=== PATIENT | male | born 1945 | race Caucasian/White ===

== ENCOUNTER → 2019-12-09 | Outpatient (CLI) | payer MEDICARE, BC ==
[~2019-12-09] MED LIST: BENA40TA3 PO; HYDR25TA6 PO; ROSU5TAB PO; VILA40TA PO; testosterone
[2019-12-09 10:44] LABS: ALANINE AMINOTRANSFERASE 33 U/L (12-78); ALBUMIN 3.9 g/dL (3.4-5.0); ANION GAP 4 mmol/L (5-15); CALCIUM 8.9 mg/dL (8.5-10.1); CHLORIDE 105 mmol/L (98-107); CREATININE 1.61 mg/dL (0.7-1.3)
[2019-12-09 10:47] LABS: ALKALINE PHOSPHATASE 73 U/L (45-117); BILIRUBIN,TOTAL 0.8 mg/dL (0.2-1.0); TOTAL PROTEIN 8.2 g/dL (6.4-8.2)
== END | disposition home or self-care (01) ==
LOC: STAR 09:22
PROVIDERS: ATTEND Otolaryngology
DX: Z01.818 Encounter for other preprocedural examination (principal); J01.01 Acute recurrent maxillary sinusitis; K04.5 Chronic apical periodontitis; I45.19 Other right bundle-branch block
CPT/HCPCS: 36415; 80053; 93005

== ENCOUNTER 2019-12-14 05:18 | Day surgery (SDC) | payer MEDICARE, BC ==
[~2019-12-14] VITALS: Ht 188 cm; Wt 118.3 kg
[~2019-12-14 05:18] MED LIST changes: -testosterone; +testosterone IM
[2019-12-14] MEDS ORDERED: LACTATED RINGERS 1,000 ML IV SCH (05:45)
[2019-12-14 05:49] VITALS: BP 112/73
[2019-12-14] MEDS ORDERED: CHLORHEXIDINE 15 ML UDC MM ONE (06:00)
[2019-12-14] MEDS ORDERED: LIDOCAINE 1%-EPI 1:100K, 20ML ONE (06:15)
[2019-12-14] MEDS ORDERED: BACITRACIN 50,000 UNIT ONE (06:15)
[2019-12-14] MEDS ORDERED: EPINEPHRINE TOPICAL SOLN 1 MG/ML, 30ML ONE (06:15)
[2019-12-14] MEDS ORDERED: BACITRACIN OINT 500U/GM, 15 GM ONE (06:15)
[2019-12-14] MEDS ORDERED: OXYMETAZOLINE NASAL SPRAY 0.05%, 15ML ONE (06:15)
[2019-12-14] MEDS ORDERED: FLUORESCEIN SODIUM 500 MG/5 ML ONE (06:15)
[2019-12-14] MEDS ORDERED: FENTANYL PF 250 MCG/5ML ONE (06:46)
[2019-12-14] MEDS ORDERED: MIDAZOLAM 1 MG/ML, 2ML ONE (06:46)
[2019-12-14] MEDS ORDERED: PROPOFOL 10 MG/ML, 20ML ONE (06:46)
[2019-12-14] MEDS ORDERED: ROCURONIUM 10MG/ML,5ML ONE (06:46)
[2019-12-14] MEDS ORDERED: LIDOCAINE 2%, 10ML ONE (06:46)
[2019-12-14] MEDS ORDERED: DEXAMETHASONE 4 MG/ML, 1ML ONE (06:46)
[2019-12-14] MEDS ORDERED: GLYCOPYRROLATE 0.2MG/1ML, 5ML ONE (06:46)
[2019-12-14] MEDS ORDERED: LABETALOL 5MG/ML, 20ML ONE (06:57)
[2019-12-14] MEDS ORDERED: LIDOCAINE 1%, 20ML ONE (06:57)
[2019-12-14] MEDS ORDERED: MAGNESIUM SULFATE 1 GM/2 ML ONE (06:57)
[2019-12-14] MEDS ORDERED: HYDROcodone/APAP 7.5-325MG/15ML UDC PO PRN (07:00)
[2019-12-14] MEDS ORDERED: HYDROmorphone 1 MG/ML, 1ML INJ IVPush PRN (07:00)
[2019-12-14] MEDS ORDERED: LORazepam 2 MG/ML, 1ML IVPush PRN (07:00)
[2019-12-14] MEDS ORDERED: EPHEDRINE 50 MG/ML, 1ML IVPush PRN (07:00)
[2019-12-14] MEDS ORDERED: HALOPERIDOL 5 MG/ML IV PRN (07:00)
[2019-12-14] MEDS ORDERED: KETOROLAC 30 MG/1 ML IV PRN (07:00)
[2019-12-14] MEDS ORDERED: hydrALAzine 20 MG/ML, 1ML IV PRN (07:00)
[2019-12-14] MEDS ORDERED: OXYcodone 5 MG/5 ML ORAL.SOL UDC PO PRN (07:00)
[2019-12-14] MEDS ORDERED: LABETALOL 5MG/ML, 20ML IV PRN (07:00)
[2019-12-14] MEDS ORDERED: ALBUTEROL/IPRATROPIUM 2.5MG/0.5MG, 3 ML NPPB PRN (07:00)
[2019-12-14] MEDS ORDERED: FENTANYL PF 100 MCG/2ML IV PRN (07:00)
[2019-12-14] MEDS ORDERED: ONDANSETRON 2MG/ML, 2ML IVPush PRN (07:00)
[2019-12-14] MEDS ORDERED: MIDAZOLAM 1 MG/ML, 2ML IV PRN (07:00)
[2019-12-14] MEDS ORDERED: DIPHENHYDRAMINE 50 MG/ML, 1ML IVPush PRN (07:00)
[2019-12-14] MEDS ORDERED: DIAZEPAM 5 MG/ML, 2ML IVPush PRN (07:00)
[2019-12-14] MEDS ORDERED: EPHEDRINE 50 MG/ML, 1ML IM PRN (07:00)
[2019-12-14] MEDS ORDERED: CLINDAMYCIN 150 MG/ML, 6ML ONE (07:25)
[2019-12-14] MEDS ORDERED: ACETAMINOPHEN 325 MG TABLET PO PRN (09:30)
[2019-12-14] MEDS ORDERED: ACETAMINOPHEN 650 MG/20.3 ML UDC ONE (09:32)
== END 2019-12-14 11:40 | disposition home or self-care (01) ==
LOC: OUT 05:18
PROVIDERS: ATTEND Otolaryngology
DX: J32.8 Other chronic sinusitis (principal); Z11.59 Encounter for screening for other viral diseases; J01.01 Acute recurrent maxillary sinusitis; K04.5 Chronic apical periodontitis; J32.2 Chronic ethmoidal sinusitis; J32.0 Chronic maxillary sinusitis; F12.90 Cannabis use, unspecified, uncomplicated; Z98.890 Other specified postprocedural states; Z79.899 Other long term (current) drug therapy; Z88.8 Allergy status to other drugs, medicaments and biological substances; Z72.89 Other problems related to lifestyle; Z87.891 Personal history of nicotine dependence; Z82.49 Family history of ischemic heart disease and other diseases of the circulatory system; Z83.3 Family history of diabetes mellitus
CPT/HCPCS: 31255; 31256; 31276; 87070; 87075; 87205; 88304; J1100; J2001; J2250; J2704; J3010; J3475; J3490; J7120; U0001

== ENCOUNTER 2019-12-21 05:40 | Day surgery (SDC) | payer MEDICARE, BC ==
[~2019-12-21] VITALS: Ht 188 cm; Wt 115.0 kg
[2019-12-21] MEDS ORDERED: LACTATED RINGERS 1,000 ML IV SCH (06:44)
[2019-12-21] MEDS ORDERED: MIDAZOLAM 1 MG/ML, 2ML ONE (06:51)
[2019-12-21] MEDS ORDERED: FENTANYL PF 100 MCG/2ML ONE (06:51)
[2019-12-21 06:55] VITALS: BP 129/73
[2019-12-21] MEDS ORDERED: CHLORHEXIDINE 15 ML UDC MM ONE (07:00)
[2019-12-21] MEDS ORDERED: LIDOCAINE-MPF 1%, 2ML INFIL ONE (07:00)
[2019-12-21] MEDS ORDERED: OXYMETAZOLINE NASAL SPRAY 0.05%, 15ML ONE (07:01)
[2019-12-21] MEDS ORDERED: BACITRACIN OINT 500U/GM, 15 GM ONE (07:01)
[2019-12-21] MEDS ORDERED: BACITRACIN ZINC OINT 500U/GM, 0.9 GM ONE (07:01)
[2019-12-21] MEDS ORDERED: LIDOCAINE 1%-EPI 1:100K, 20ML ONE (07:01)
[2019-12-21] MEDS ORDERED: EPINEPHRINE TOPICAL SOLN 1 MG/ML, 30ML ONE (07:01)
[2019-12-21] MEDS ORDERED: FLUORESCEIN SODIUM 500 MG/5 ML ONE (07:03)
[2019-12-21] MEDS ORDERED: FENTANYL PF 100 MCG/2ML IV PRN (08:00)
== END 2019-12-21 08:50 | disposition home or self-care (01) ==
LOC: OUT 05:40
PROVIDERS: ATTEND Otolaryngology
DX: J01.01 Acute recurrent maxillary sinusitis (principal); Z11.59 Encounter for screening for other viral diseases; K04.5 Chronic apical periodontitis; J32.0 Chronic maxillary sinusitis; J32.2 Chronic ethmoidal sinusitis; J34.89 Other specified disorders of nose and nasal sinuses; I10 Essential (primary) hypertension; Z98.890 Other specified postprocedural states
CPT/HCPCS: 31237; J2250; J3010; J7120; U0001; J3490